=== PATIENT | female | born 1940 | race Caucasian/White ===

== ENCOUNTER 2016-12-12 10:51 | Outpatient (CLI) | payer MEDICARE | END 2016-12-12 10:52 | disposition home or self-care (01) | LOC: NAVSJIPCSP 10:51 | DX: M10.9 Gout, unspecified (principal) | CPT/HCPCS: 36415; 84550 ==

== ENCOUNTER 2016-12-17 14:26 | Outpatient (CLI) | payer MEDICARE ==
--- NOTE | 2016-12-17 16:59 | RAD ---
THREE VIEWS RIGHT FOOT: DATE: 12/17/16. HISTORY: Gout right foot. FINDINGS: Postsurgical changes likely related to osteotomies involving the 1st and 2nd metatarsals. 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 There is no fracture or d islocation seen. There is mild metatarsus prima varus and hallux valgus. No definite osseous erosi ons are seen. Lisfranc joint is normally aligned. No other findings. IMPRESSION: 1. No acute osseous abnormality right foot. 2. 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 POS: [facility]
== END 2016-12-17 14:27 | disposition home or self-care (01) ==
LOC: NAV RAD 14:26
DX: M10.471 Other secondary gout, right ankle and foot (principal); M19.071 Primary osteoarthritis, right ankle and foot; Z98.890 Other specified postprocedural states

== ENCOUNTER 2017-01-01 09:51 | Outpatient (CLI) | payer MEDICARE ==
[2017-01-01 12:52] LABS: Hemoglobin A1c 6.6 % (4.0-6.0)
[2017-01-01 13:03] LABS: Cardiac Risk 4.1 (Less than 4.5)
== END 2017-01-01 09:52 | disposition home or self-care (01) ==
LOC: NAVSJIPCSP 09:51
PROVIDERS: ATTEND Internal Medicine
DX: E11.9 Type 2 diabetes mellitus without complications (principal); E78.5 Hyperlipidemia, unspecified; G47.33 Obstructive sleep apnea (adult) (pediatric)
CPT/HCPCS: 36415; 80061; 83036

== ENCOUNTER 2018-01-09 09:13 | Outpatient (CLI) | payer MEDICARE ==
--- NOTE | 2018-01-09 10:27 | RAD ---
RIGHT SHOULDER THREE VIEWS: HISTORY: Shoulder pain. COMPARISON: None. FINDINGS: No acute displaced fracture or malalignment. Mild degenerative disease of the acromioclavicular join t. The ribs are unremarkable. IMPRESSION: Mild degenerative changes. POS: [facility]
== END 2018-01-09 09:14 | disposition home or self-care (01) ==
LOC: NAV RAD 09:13
PROVIDERS: ATTEND Internal Medicine
DX: M19.011 Primary osteoarthritis, right shoulder (principal)

== ENCOUNTER 2018-09-04 09:18 | Inpatient (IN) | payer MEDICARE ==
[2018-09-04] MEDS ORDERED: Sodium Chloride 0.9% 0 ML ONE (09:44)
[2018-09-04] MEDS ORDERED: Ondansetron PF 4 MG/2 ML Vial ONE (09:45)
[2018-09-04 09:54] LABS: ALT (SGPT) 14 U/L (8-55); AST (SGOT) 18 U/L (5-34); Albumin 3.9 g/dL (3.4-4.8); Alkaline Phosphatase 55 U/L (40-150); Anion Gap 17 mmol/L (10-20); BUN (Urea Nitrogen) 38 mg/dL (9.8-20.1); Bilirubin, Total 0.4 mg/dL (0.2-1.2); CK (CPK) 27 U/L (29-168); Calc. Creatinine Clearance 0 mL/min (70-130); Calcium 8.9 mg/dL (7.8-10.44); Carbon Dioxide 18 mmol/L (23-31); Chloride 110 mmol/L (98-107); Estimated GFR-MDRD 57; Globulin 3.2 g/dL (2.4-3.5); Glucose 248 mg/dL (83-110); Potassium 3.6 mmol/L (3.5-5.1); Protein, Total 7.1 g/dL (6.0-8.3); Sodium 141 mmol/L (136-145)
[2018-09-04 10:10] LABS: #Basophils 0.1 thou/uL (0.0-0.2); #Eosinphils 0.2 thou/uL (0.0-0.7); #Lymphocytes 3.6 thou/uL (1.20-3.40); #Monocytes 0.8 thou/uL (0.11-0.59); #Neutrophils 7.1 thou/uL (1.40-6.50); %Basophils 0.6 % (0.0-1.0); %Eosinophils 1.9 % (0.0-10.0); %Lymphocytes 30.4 % (21.0-51.0); %Monocytes 6.6 % (0.0-10.0); %Neutrophils 60.5 % (42.0-75.0); Hemoglobin 10.6 g/dL (12.0-16.0); Mean Corpuscular HGB CONC 32.3 g/dL (32.0-36.0); Mean Corpuscular Volume 89.6 fL (78.0-98.0); Mean Platelet Volume 6.4 fL (7.4-10.4); Platelet Count 274 thou/uL (130-400); RBC Distribution Width 13.3 % (11.5-14.5); Red Blood Cell (RBC) Count 3.66 mill/uL (4.20-5.40); White Blood Cell (WBC) Count 11.8 thou/uL (4.8-10.8)
--- NOTE | 2018-09-04 10:11 | RAD ---
EXAM: CHEST ONE VIEW: History: Weakness. Comparison: 07-22-16 FINDINGS: Post op midline sternotomy. Heart size is normal. Lungs are clear. IMPRESSION: No significant acute intrathoracic disease. Stable from prior study. POS: [facility]
[2018-09-04 10:39] LABS: Lipase 28 U/L (8-78)
[2018-09-04] MEDS ORDERED: Acetaminophen 500 MG TAB ONE (10:49)
[2018-09-04 11:37] LABS: Bilirubin Negative (Negative); Blood, Urine Trace (Negative); Clarity Clear (Clear); Glucose, Urine (Dipstick) Negative (Negative); Leukocyte Negative (Negative); Nitrite Negative (Negative); Protein, Urine (Dipstick) Negative (Neg-Trace); Urobilinogen 0.2 mg/dL (0.2-1.0); pH, Urine 5.5 (5.0-9.0)
[2018-09-04 11:38] LABS: RBC/HPF 0-3 HPF (0-3)
[2018-09-04 11:39] LABS: Bacteria/HPF Rare-Few HPF (None Seen); Other Microscopic Description NO; Squamous Epithelial None Seen HPF (0-3); WBC/HPF 0-3 HPF (0-3)
[2018-09-04 13:02] VITALS: BMI 31.8
[2018-09-04] MEDS ORDERED: Ondansetron PF 4 MG/2 ML Vial IVP PRN (13:09)
[2018-09-04] MEDS ORDERED: Dextrose 5% in Water 1,000 ML IV PRN (14:54)
[2018-09-04] MEDS ORDERED: HumaLOG 300 UNITS/3 ML VIAL SC PRN (14:54)
[2018-09-04] MEDS ORDERED: Dextrose 50% Abboject 50 ML SYRINGE SLOW IVP PRN (14:54)
[2018-09-04 14:59] LABS: Lactic Acid 1.9 mmol/L (0.5-2.2)
[2018-09-04 15:48] LABS: Anion Gap 13 mmol/L (10-20); BUN (Urea Nitrogen) 39 mg/dL (9.8-20.1); Calc. Creatinine Clearance 75 mL/min (70-130); Calcium 8.5 mg/dL (7.8-10.44); Carbon Dioxide 20 mmol/L (23-31); Chloride 114 mmol/L (98-107); Estimated GFR-MDRD 68; Glucose 196 mg/dL (83-110); Potassium 4.4 mmol/L (3.5-5.1); Sodium 143 mmol/L (136-145)
[2018-09-04] MEDS: Sodium Chloride 0.9% 1,000 ML IV SCH ×2 (17:36→18:23)
[2018-09-04] MEDS ORDERED: Azithromycin 500 MG in Sodium Chloride 0.9% 250 ML 250 ML IVPB SCH (20:00)
[2018-09-04] MEDS ORDERED: Rosuvastatin 10 MG TAB PO SCH (21:00)
[2018-09-04] MEDS ORDERED: Losartan 25 MG TAB PO SCH (21:00)
[2018-09-05] MEDS ORDERED: Acetaminophen 500 MG TAB PO PRN (02:07)
[2018-09-05] MEDS ORDERED: Ondansetron PF 4 MG/2 ML Vial IVP PRN (02:07)
[2018-09-05] MEDS: Sodium Chloride 0.9% 1,000 ML IV SCH ×3 (05:06→16:38)
[2018-09-05 05:53] LABS: #Basophils 0.1 thou/uL (0.0-0.2); #Eosinphils 0.1 thou/uL (0.0-0.7); #Lymphocytes 1.6 thou/uL (1.20-3.40); #Monocytes 0.4 thou/uL (0.11-0.59); #Neutrophils 7.1 thou/uL (1.40-6.50); %Basophils 0.6 % (0.0-1.0); %Eosinophils 1.3 % (0.0-10.0); %Lymphocytes 17.6 % (21.0-51.0); %Monocytes 4.8 % (0.0-10.0); %Neutrophils 75.8 % (42.0-75.0); Hemoglobin 6.4 g/dL (12.0-16.0); Mean Corpuscular HGB CONC 33.5 g/dL (32.0-36.0); Mean Corpuscular Hemoglobin 30.1 pg (27.0-31.0); Mean Corpuscular Volume 89.9 fL (78.0-98.0); Mean Platelet Volume 6.6 fL (7.4-10.4); Platelet Count 211 thou/uL (130-400); RBC Distribution Width 13.2 % (11.5-14.5); Red Blood Cell (RBC) Count 2.14 mill/uL (4.20-5.40); White Blood Cell (WBC) Count 9.3 thou/uL (4.8-10.8)
[2018-09-05 07:15] LABS: Anion Gap 12 mmol/L (10-20); BUN (Urea Nitrogen) 43 mg/dL (9.8-20.1); Calc. Creatinine Clearance 79 mL/min (70-130); Carbon Dioxide 17 mmol/L (23-31); Chloride 119 mmol/L (98-107); Estimated GFR-MDRD 72; Glucose 226 mg/dL (83-110); Sodium 144 mmol/L (136-145)
[2018-09-05 07:31] LABS: Lactic Acid 1.5 mmol/L (0.5-2.2)
[2018-09-05] MEDS: metFORMIN XR 500 MG TAB PO SCH ×2 (08:58→17:01)
[2018-09-05] MEDS ORDERED: Vit A,C & E/Lutein/Minerals Tablet PO SCH (09:00)
[2018-09-05] MEDS ORDERED: Topiramate 25 MG TAB PO SCH ×2 (09:00→21:00)
[2018-09-05] MEDS ORDERED: Aspirin 81 mg Enteric Coated Tablet PO SCH (09:00)
[2018-09-05 10:46] VITALS: BP 133/63; TEMP 98.4
--- NOTE | 2018-09-06 00:15 | SS ---
DATE OF ADMISSION: 09/04/2018 DATE OF DISCHARGE: 09/05/2018 FINAL DIAGNOSES: 1. Acute upper gastrointestinal bleed secondary to gastric ulcer. 2. Aortic valve disease status post aortic valve bypass. 3. Diabetes mellitus type 2, controlled to goal. 4. Hypertension, controlled to goal. HISTORY OF PRESENT ILLNESS AND HOSPITAL COURSE: The patient is a very pleasant -[id number] white female, well known to myself with a long history of hypertension, type 2 diabetes, and history of aortic valve replacement two years ago, who has been doing very well except for some aches and pains in her shoulders, which she has been taking Aleve once daily. She has no history of indigestion or heartburn or abdominal pain. She has had a colonoscopy done in the past, which was normal, but has not had an EGD. The patient presented to the emergency room on the day of admission with acute onset of nausea, diaphoresis, and weakness. She was seen in the ER, found at that time to be dehydrated with a normal hemoglobin, but with no vomiting or diarrhea. She was given IV fluids, appeared to feel much better, but was still somewhat shaky. Her laboratory showed a normal BUN and creatinine, but did show an elevated lactate. Normal CBC. She was therefore placed in the observation pereyra for IV fluids for monitoring. She subsequently felt somewhat better that afternoon, but still does not feel well. She had a poor appetite, but had not eaten or vomited or had any bowel movement. PHYSICAL EXAMINATION: VITAL SIGNS: On admission, her blood pressure was 157/67, temperature was 98.1, pulse is 84, respirations 18, O2 saturation was 95%. LUNGS: Clear. CARDIAC: Examination showed regular rhythm. ABDOMEN: Soft and nontender. SKIN/EXTREMITIES: Showed no edema, clubbing, or cyanosis. NEUROLOGIC: Intact. LABORATORY DATA: Initial laboratory as mentioned above, showed a white count of 11,800, hemoglobin was 10.6, which is somewhat decreased from her previous hemoglobin of 12.5 last year. Hematocrit was 32. Sodium was 143, potassium 4.4, chloride 114, bicarb was 20, BUN was 39, creatinine 0.8, which again was somewhat increased from creatinine last year. Lactate as mentioned above was borderline elevated at 1.9. For this reason, she was admitted to the observation pereyra, kept on IV saline at 125 mL an hour. She felt slightly better, but subsequently that night had two dark stools, which she flushed without any evaluation for Hemoccult. The next morning, her hemoglobin has decreased to 6.4 with hematocrit of 19, white count of 9300. She subsequently then had a bloody stool. BUN had increased to 43, creatinine 0.78. She had 2 units of packed cells given. Consulted Dr. Monique, who transferred her to [facility], where she had a gastroscopy, which showed a significant amount of bleeding from a large gastric ulcer with difficulty stopping secondary to the bleeding and therefore, he felt she should be transferred and maintained there and have a re-scope tomorrow. She will be treated with proton-pump inhibitors and will be monitored closely for recurrent bleeding. Her vital signs remained stable, but she required was transferred to the [facility]. Job ID: [id number]
== END 2018-09-05 18:24 | disposition short-term general hospital (02) | DRG 379 ==
LOC: NAV ERS 09:18 → NAV ACUTE 12:52 → OBSVTOIN 12:52
PROVIDERS: ADMIT Internal Medicine; ATTEND Internal Medicine
PROC: 30233N1 Transfusion of Nonautologous Red Blood Cells into Peripheral Vein, Percutaneous Approach (ICD-10-PCS; principal; 2018-09-05)
DX: K25.4 Chronic or unspecified gastric ulcer with hemorrhage (principal); E11.9 Type 2 diabetes mellitus without complications; I10 Essential (primary) hypertension; E78.5 Hyperlipidemia, unspecified; Z95.4 Presence of other heart-valve replacement; Z90.710 Acquired absence of both cervix and uterus; Z90.49 Acquired absence of other specified parts of digestive tract; Z90.89 Acquired absence of other organs
CPT/HCPCS: 36416; 36430; 71045; 80048; 80053; 81003; 81015; 82550; 83605; 83690; 84145; 84484; 85025; 86850; 86900; 86901; 93005; 96361; 96374; 36415-59; J0456; J2405; J7050; P9016

== ENCOUNTER 2018-12-10 08:53 | Outpatient (CLI) | payer MEDICARE ==
--- NOTE | 2018-12-11 10:25 | CT ---
CT ABDOMEN AND PELVIS WITH IV CONTRAST 12/10/2018 CLINICAL INFORMATION: Gastric submucosal mass in the cardia of the stomach. COMPARISON: 09/06/2018 Technique: Multiple contiguous axial CT images are obtained through the abdomen and pelvis with IV contrast. Cor onal reformatted images are provided. FINDINGS: Lower Chest: Post surgical changes related to median sternotomy and aortic valve replacement are agai n noted. There is a small right and tiny left pleural effusions each of which is slightly larger in s ize compared to prior exam. Associated bibasilar atelectasis is present. No discrete pulmonary nodule or mass is identified. Vessels: Vascular calcifications are again seen in the abdominal aorta and involving the iliac arteri es. Abdomen: Portal vein: Patent Gallbladder: Within normal limits for CT imaging. Liver: Stable very small subcentimeter hypodense lesion is again seen in the posterior segment of the right hepatic lobe. No additional hepatic lesions are seen. Spleen: within normal limits. Pancreas: within normal limits. Adrenals: within normal limits. Kidneys: A nonobstructing inferior pole left renal calculus is again seen. The kidneys otherwise have a normal CT appearance bilaterally. Bowel: There has been interval postsurgical changes of the stomach, and the previously noted mass in the region of the cardia of the stomach is no longer visualized. There is suture material now present in the region of the gastric fundus. Loops of small bowel are normal in caliber. Appendix: Not visualized. Patient reports history of prior appendectomy on provided history on prior exam. Peritoneum: No ascites or free air; no fluid collection. Mesentery and Retroperitoneum: No enlarged mesenteric or retroperitoneal lymph nodes. Abdominal Wall: There is inflammatory stranding seen within the adipose layer of the left abdomen lik sweetie due to prior postsurgical changes. There is no fluid collection seen to suggest an abscess. Punct ate focus of gas is seen in the midline in a supraumbilical location which also may relate to prior p ostsurgical change. Pelvis: Reproductive Organs: There is evidence of hysterectomy. Pelvis within normal limits. Bladder: within normal limits. Bones: Degenerative changes are seen in the spine. No suspicious lytic or sclerotic osseous lesions a re identified. A hemangioma is again seen in the L3 vertebral body. IMPRESSION: 1. Interval postsurgical changes of the stomach with radiopaque suture material seen adjacent to the fundus of the stomach; the previously seen mass in the cardia the stomach is no longer visualized. 2. Small right and tiny left pleural effusions with associated atelectasis. 3. Stable subcentimeter too small to characterize hypodense lesion right hepatic lobe. 4. Hysterectomy. 5. Nonobstructing left renal calculus. 6. Mild stranding within the adipose layer left anterior abdomen with punctate focus of gas in the mi dline probably related to prior postsurgical changes. There is no fluid collection seen to suggest a n abscess. 7. No CT findings to suggest metastatic disease. POS: [facility]
== END 2018-12-10 08:54 | disposition home or self-care (01) ==
LOC: NAV CT 08:53
PROVIDERS: ATTEND Internal Medicine
DX: K25.0 Acute gastric ulcer with hemorrhage (principal); J90 Pleural effusion, not elsewhere classified; J98.11 Atelectasis; K76.9 Liver disease, unspecified; N20.0 Calculus of kidney; Z90.710 Acquired absence of both cervix and uterus; Z98.890 Other specified postprocedural states
CPT/HCPCS: 74177

== ENCOUNTER 2019-03-13 14:31 | Emergency (ER) | payer MEDICARE ==
[~2019-03-13 14:31] MED LIST: Iopamidol 370 76% 100 ML VIAL ONE
[2019-03-13 14:48] LABS: #Basophils 0.1 thou/uL (0.0-0.2); #Eosinphils 0.2 thou/uL (0.0-0.7); #Monocytes 0.6 thou/uL (0.11-0.59); #Neutrophils 4.7 thou/uL (1.40-6.50); %Basophils 0.7 % (0.0-1.0); %Eosinophils 2.5 % (0.0-10.0); %Lymphocytes 26.5 % (21.0-51.0); %Monocytes 7.6 % (0.0-10.0); %Neutrophils 62.7 % (42.0-75.0); Hemoglobin 10.9 g/dL (12.0-16.0); Mean Corpuscular HGB CONC 31.1 g/dL (32.0-36.0); Mean Corpuscular Volume 83.6 fL (78.0-98.0); Mean Platelet Volume 6.7 fL (7.4-10.4); Platelet Count 271 thou/uL (130-400); RBC Distribution Width 16.8 % (11.5-14.5); Red Blood Cell (RBC) Count 4.19 mill/uL (4.20-5.40); White Blood Cell (WBC) Count 7.4 thou/uL (4.8-10.8)
[2019-03-13 14:59] LABS: INR-International Normal Ratio 1.1; Prothrombin Time 13.9 SEC (12.0-14.7)
--- NOTE | 2019-03-13 15:03 | CT ---
CT Brain WO Con: 03/13/2019 2:42 PM CLINICAL HISTORY: Difficulty in remembering words. IMAGING TECHNIQUE: Multiple CT images were obtained of the brain without IV contrast. COMPARISON: CT the brain dated December 13, 2017 FINDINGS: Brain: No acute infarct or hemorrhage is present. [id number] chronic small vessel white matter ischemic changes stable. Ventricles: Normal. No hydrocephalus.. Skull: Intact.. Visualized Paranasal sinuses: Clear.. Mastoid air cells:Clear. Extracranial soft tissues:Normal. IMPRESSION: No acute intracranial abnormality. Findings called to Dr. Blanchard at 2:58 PM on March 13, 2019.
[2019-03-13 15:06] LABS: ALT (SGPT) 15 U/L (8-55); AST (SGOT) 19 U/L (5-34); Albumin 4.3 g/dL (3.4-4.8); Alkaline Phosphatase 66 U/L (40-110); Anion Gap 15 mmol/L (10-20); BUN (Urea Nitrogen) 15 mg/dL (9.8-20.1); Bilirubin, Total 0.2 mg/dL (0.2-1.2); CK (CPK) 57 U/L (29-168); Calc. Creatinine Clearance 0 mL/min (70-130); Calcium 9.7 mg/dL (7.8-10.44); Carbon Dioxide 23 mmol/L (23-31); Chloride 109 mmol/L (98-107); Estimated GFR-MDRD 57; Globulin 3.5 g/dL (2.4-3.5); Glucose 89 mg/dL (83-110); Potassium 3.6 mmol/L (3.5-5.1); Protein, Total 7.8 g/dL (6.0-8.3); Sodium 143 mmol/L (136-145)
--- NOTE | 2019-03-13 15:27 | RAD ---
Exam: Chest one view HISTORY:Evaluate for stroke Comparison: 09/04/2018 FINDINGS: Cardiac silhouette:Upper normal cardiac silhouette Aorta: Unremarkable Pulmonary vessels: Normal Costophrenic angles: Clear LUNGS: No masses or consolidation. Pneumothorax: None Osseous abnormalities: None IMPRESSION: No acute cardiopulmonary process.
--- NOTE | 2019-03-13 15:32 | CT ---
CT BRAIN: INDICATION: Stroke. COMPARISON: None. TECHNIQUE: CT angiogram of the head and neck are performed in the axial plane. Three-dimensional reformatted tabitha ges are submitted for interpretation. FINDINGS: CTA OF THE HEAD WITH AND WITHOUT CONTRAST: POSTCONTRAST CT OF BRAIN: Pathologic enhancement: No pathologic enhancement the brain. POSTCONTRAST SOFT TISSUE NECK CT: Sinuses: Adequate aeration of the sinuses and mastoid air cells. Orbits: Bilateral ocular lenses implants are appropriately located. Both globes are intact. Retrobulb ar fat is preserved. Symmetric attenuation the optic nerves and ocular rectus muscles. Salivary glands:Fatty replacement of the parotid glands, symmetric. Unremarkable submandibular . Thyroid gland: Unremarkable. Lymph nodes: No evidence of lymphadenopathy by size criteria. Paraspinal muscles: Symmetric attenuation of the sternocleidomastoid muscles. Appropriate attenuation of the paraspinal muscles. Cervical spine:Vertebral body height is maintained. No fracture. No significant central canal stenosi s or significant neural foraminal narrowing. Limited evaluation by technique. Upper mediastinum and lung apices: Chronic changes of lung apices. CTA OF THE BRAIN: Intracranial internal carotid arteries:Symmetric enhancement in diameter . Anterior circulation: Symmetric enhancement and luminal diameter the A1 and M1 segments. Proximal A2 segments and proximal MCA branches have symmetric enhancement and luminal diameter. Intracranial vertebral arteries: Appropriate enhancement and luminal diameter. Posterior circulation: Both vertebral arteries supply a normal appearing basilar artery. Both P1 segm ents have symmetric enhancement and luminal diameter. CTA OF THE NECK WITH CONTRAST: Right carotid artery: Right carotid artery origin has appropriate enhancement and luminal diameter. T he common carotid artery, carotid bifurcation and internal carotid artery of appropriate enhancement and luminal diameter. Left carotid: Left carotid artery origin has appropriate enhancement and luminal diameter. Minimal at herosclerosis is noted in the proximal left common carotid artery. Minimal atherosclerosis of the distal left common carotid carotid bifurcation. The carotid bifurcation and internal carotid artery h ave appropriate enhancement. Subclavian arteries:Patent and symmetric. Vertebral arteries:Codominant. No significant stenosis. Note, the left vertebral artery originates fr om the aortic arch . IMPRESSION: 1. No significant stenosis at the level of [place] of [place]. 2. No significant stenosis of the cervical, carotid, or vertebral arteries, based upon NASCET criteri a. Results of the study discussed with Dr. Blanchard 03/13/2019 at 3:33 PM. Code CR Transcribed Date/Time: 03/13/2019 3:40 PM
[2019-03-13] MEDS ORDERED: Aspirin Chewable 81 MG TAB ONE (16:27)
[2019-03-13] MEDS ORDERED: Pantoprazole 40 MG VIAL ONE (16:38)
[2019-03-13 16:47] LABS: Bilirubin Negative (Negative); Blood, Urine Negative (Negative); Clarity Clear (Clear); Glucose, Urine (Dipstick) Negative (Negative); Leukocyte Trace (Negative); Nitrite Negative (Negative); Protein, Urine (Dipstick) Negative (Neg-Trace); Urobilinogen 0.2 mg/dL (Less than 2)
[2019-03-13 16:55] LABS: Bacteria/HPF Rare-Few HPF (None Seen); RBC/HPF 0-3 HPF (0-3)
== END 2019-03-13 17:10 | disposition home or self-care (01) ==
LOC: NAV ERS 14:31
DX: R41.0 Disorientation, unspecified (principal); E11.9 Type 2 diabetes mellitus without complications; E78.5 Hyperlipidemia, unspecified; I10 Essential (primary) hypertension; F41.9 Anxiety disorder, unspecified; Z79.84 Long term (current) use of oral hypoglycemic drugs; Z79.899 Other long term (current) drug therapy
CPT/HCPCS: 36416; 70450; 70496; 71045; 80053; 81003; 81015; 82550; 84484; 85025; 85610; 85730; 93005; 96374; C9113; Q9967

== ENCOUNTER 2020-03-10 16:54 | Outpatient (CLI) | payer MEDICARE ==
[2020-03-10 17:19] LABS: #Basophils 0.1 thou/uL (0.0-0.2); #Eosinphils 0.4 thou/uL (0.0-0.7); #Lymphocytes 2.1 thou/uL (1.20-3.40); #Monocytes 0.6 thou/uL (0.11-0.59); #Neutrophils 4.9 thou/uL (1.40-6.50); %Eosinophils 5.1 % (0.0-10.0); %Lymphocytes 25.5 % (21.0-51.0); %Monocytes 7.8 % (0.0-10.0); %Neutrophils 60.6 % (42.0-75.0); Mean Corpuscular HGB CONC 33.5 g/dL (32.0-36.0); Mean Corpuscular Hemoglobin 30.9 pg (27.0-31.0); Mean Platelet Volume 6.7 fL (7.4-10.4); Platelet Count 269 thou/uL (130-400); RBC Distribution Width 11.9 % (11.5-14.5); Red Blood Cell (RBC) Count 4.21 mill/uL (4.20-5.40); White Blood Cell (WBC) Count 8.1 thou/uL (4.8-10.8)
[2020-03-10 17:37] LABS: ALT (SGPT) 14 U/L (8-55); AST (SGOT) 16 U/L (5-34); Albumin 4.3 g/dL (3.4-4.8); Alkaline Phosphatase 69 U/L (40-110); Anion Gap 15 mmol/L (10-20); BUN (Urea Nitrogen) 26 mg/dL (9.8-20.1); Bilirubin, Total 0.2 mg/dL (0.2-1.2); Calc. Creatinine Clearance 0 mL/min (70-130); Calcium 9.6 mg/dL (7.8-10.44); Carbon Dioxide 29 mmol/L (23-31); Estimated GFR-MDRD 49; Glucose 170 mg/dL (83-110); Potassium 4.6 mmol/L (3.5-5.1); Protein, Total 8.3 g/dL (6.0-8.3)
[2020-03-10 17:48] LABS: Chloride 103 mmol/L (98-107); Sodium 142 mmol/L (136-145)
--- NOTE | 2020-03-10 20:04 | CT ---
CT abdomen and pelvis with IV and oral contrast HISTORY: Malignant stromal tumor. Follow-up. COMPARISON: 12/10/2018. FINDINGS: Lung bases are now clear. Postoperative changes of the upper stomach are again demonstrated . The 0.8 cm nonspecific low-density lesion within the posterior dome of the liver is unchanged in appearance. An elongated calcification within a nondilated calyx at the inferior pole of the left kidney is 1.0 c m x 0.9 cm greatest diameters. No hydronephrosis. Uterus and appendix are presumed surgically absent. No evidence of bowel obstruction or inflammation. Urinary bladder is unremarkable. IMPRESSION : Stable exam. No evidence of metastatic disease. Nonobstructing left renal calculus, 1.0 cm.
== END 2020-03-10 16:55 | disposition home or self-care (01) ==
LOC: NAV CT 16:54
PROVIDERS: ATTEND Internal Medicine
DX: C49.A2 Gastrointestinal stromal tumor of stomach (principal); N20.0 Calculus of kidney
CPT/HCPCS: 36415; 74177; 80053; 85025; Q9967

== ENCOUNTER 2021-03-22 11:15 | Outpatient (CLI) | payer MEDICARE | END 2021-03-22 11:16 | disposition home or self-care (01) | LOC: NAV RAD 11:15 | PROVIDERS: ATTEND Nurse Practitioner Family | DX: M79.641 Pain in right hand (principal); M79.644 Pain in right finger(s) ==